=== PATIENT | female | born 1985 | race Hispanic/Latino ===

== ENCOUNTER 2017-05-28 18:55 | Emergency (ER) | payer BC ==
[2017-05-28 19:11] VITALS: O2SAT 99; BMI 25.0
--- NOTE | 2017-05-28 19:19 | ED PDOC ---
Physical Exam Vital Signs Reviewed: Yes Vital Signs Temp Pulse Resp BP Pulse Ox 05/28/17 19:06 98.6 F 72 16 117/76 99 Disposition/Present on Arrival - Present on Arrival History of DVT/PE: No History of Uncontrolled Diabetes: No Urinary Catheter: No History of Decub. Ulcer: No History Surgical Site Infection Following: None - Disposition Forms: [employer] (Welsh)
--- NOTE | 2017-05-28 20:05 | ED PDOC ---
Arrival/HPI - General Chief Complaint: Upper Extremity Problem/Injury Time Seen by Provider: 05/28/17 19:02 Historian: Patient - History of Present Illness Narrative History of Present Illness (Text): 05/28/17 19:58 Pt is 44 yo f who c/o left shoulder and chest pain x1 day after doing a strenuous workout on the elliptical machine at the gym. She states that pain and tightness commenced 8 hrs post workout. Describes pain worsens on inspiration and left side-lying; a warm shower provides some relief. She reports no intake of analgesics and is concerned that the pain is heart-related , although no cardiac history.She denies SOB, N/V/D, radiating pain, upper limb paresthesia, fever or chills. Time/Duration: Prior to Arrival Symptom Onset: Sudden Symptom Course: Unchanged Quality: Aching, Tightness Severity Level: Mild Activities at Onset: Rest, Light Context: Sitting, Standing Past Medical History - Provider Review Nursing Documentation Reviewed: Yes - Travel History Have you recently traveled outside [place] w/in the past 3 mons?: No - Infectious Disease Hx of Infectious Diseases: None - Reproductive Menopause: No Currently : No - Past Medical History Past Medical History: No Previous - Cardiac Hx Cardiac Disorders: No Hx Angina: No Hx Atrial Fibrillation: No - Pulmonary Hx Respiratory Disorders: No Hx Asthma: No - Neurological Hx Neurological Disorder: No - HEENT Hx HEENT Disorder: No - Renal Hx Renal Disorder: No - Endocrine/Metabolic Hx Endocrine Disorders: No - Hematological/Oncological Hx Blood Disorders: No - Integumentary Hx Dermatological Disorder: No - Musculoskeletal/Rheumatological Hx Musculoskeletal Disorders: No - Gastrointestinal Hx Gastrointestinal Disorders: No - Genitourinary/Gynecological Hx Genitourinary Disorders: No - Psychiatric Hx Psychophysiologic Disorder: No Hx Substance Use: No - Past Surgical History Past Surgical History: No Previous - Anesthesia Hx Anesthesia: No - Suicidal Assessment Feels Threatened In Home Enviroment: No Family/Social History - Physician Review Nursing Documentation Reviewed: Yes Family/Social History: No Known Family HX Smoking Status: Never Smoked Hx Alcohol Use: No Hx Substance Use: No Allergies/Home Meds Allergies/Adverse Reactions: Allergies No Known Allergies Allergy (Verified 05/28/17 19:11) Review of Systems - Physician Review All systems were reviewed & negative as marked: Yes - Review of Systems Constitutional: Normal. absent: Fatigue, Weight Change, Fevers, Night Sweats, Other Eyes: Normal. absent: Vision Changes, Photophobia, Eye Pain, Other ENT: Normal. absent: Hearing Changes, Tinnitus, TMJ Pain, Voice Changes, Sore Throat, Rhinorrhea, Epistaxis, Sinus Congestion, Other Respiratory: Normal Cardiovascular: Normal Musculoskeletal: Normal, Other (tenderness over the left pectoralis ) Neurological: Normal. absent: Headache, Dizziness, Focal Weakness, Gait Changes , Speech Changes, SC, Facial Droop, DE, Disequilibrium, SE, Seizure, Other Physical Exam Vital Signs Reviewed: Yes Vital Signs Temp Pulse Resp BP Pulse Ox 05/28/17 21:28 98.4 F 74 18 113/68 99 05/28/17 19:06 98.6 F 72 16 117/76 99 Temperature: Afebrile Blood Pressure: Normal Pulse: Regular Respiratory Rate: Normal Appearance: Positive for: Well-Appearing Pain Distress: Mild Mental Status: Positive for: Alert and Oriented X 3 - Systems Exam Head: Present: Atraumatic, Normocephalic. No: Tenderness, Contusion, Swelling, Ecchymosis, Abrasion, Laceration, Other Pupils: Present: PERRL. No: Sluggish, Non-Reactive, Pinpoint, Other Respiratory/Chest: Present: Clear to Auscultation, Good Air Exchange. No: Respiratory Distress, Accessory Muscle Use Cardiovascular: Present: Regular Rate and Rhythm, Normal S1, S2. No: Murmurs Abdomen: Present: Normal Bowel Sounds. No: Tenderness, Distention, Peritoneal Signs Back: Present: Normal Inspection Upper Extremity: Present: Normal Inspection, Normal ROM, Neurovascularly Intact. No: Cyanosis, Edema Neurological: Present: GCS=15, CN II-XII Intact, Speech Normal Skin: Present: Warm, Dry, Normal Color. No: Rashes Medical Decision Making ED Course and Treatment: 05/28/17 20:20 Pt is 44 yo f who c/o left shoulder and chest pain x1 day after doing a strenuous workout on the elliptical machine at the gym. Pt expressed concern for heart-related event. PE reveals full ROM in active and passive movement to bilateral shoulder. Left pectoralis and upper trapezius point tenderness but negative with left shoulder. Pt likely has muscle strain s/p intense cardio workout yesterday as there no signs of pleuritic or cardiac involvement. Advised pt to rest (avoid elliptical workout for a few days) apply warm compress to tight muscles, take NSAID for pain and inflammation and muscle relaxant to relieve muscle spasm - PA / MANNEQUIN DECORATOR / Resident Statement MD/DO has examined the patient and agrees with the treatment plan. (Discussed evaluation and management) Disposition/Present on Arrival - Present on Arrival Any Indicators Present on Arrival: No History of DVT/PE: No History of Uncontrolled Diabetes: No Urinary Catheter: No History of Decub. Ulcer: No History Surgical Site Infection Following: None - Disposition Have Diagnosis and Disposition been Completed?: Yes Diagnosis: Muscle strain Disposition: HOME/ ROUTINE Disposition Time: 20:35 Patient Plan: Discharge Condition: IMPROVED Discharge Instructions (ExitCare): Ibuprofen (By mouth), Methocarbamol (By mouth), Muscle Strain (ED) Additional Instructions: Dear Patient, After careful assessment and evaluation of your condition, you have been diagnosed with the left upper trapezius and chest muscle strain. I would recommend that you apply either warm compresses or ice to the strained muscles for pain relief. You can also take Robaxin, a muscle relaxant, to reduce your muscle spasm and take 1 tablet of ibuprofen by mouth, every 6 hrs as needed to reduce pain and inflammation. Please make sure that you eat a meal before taking the ibuprofen. Follow up with you primary care doctor in about 5 days. Return to the emergency department if you experience an increase in pain or other symptoms. All the best in your recovery. Prescriptions: Ibuprofen [Motrin Tab] 600 mg PO Q6 PRN 5 Days #20 tab PRN Reason: pain/fever Methocarbamol [Robaxin] 500 mg PO Q8 PRN #20 tab PRN Reason: Muscle Spasm Referrals: Fara Moore MD [Primary Care Provider] - Follow up with primary Forms: [employer] ([employer])
[2017-05-28 21:28] VITALS: BP 113/68; PULSE 74; RESP 18; TEMP 98.4
== END 2017-05-28 21:29 | disposition home or self-care (01) ==
LOC: ED 18:55
DX: S29.011A Strain of muscle and tendon of front wall of thorax, initial encounter (principal); X50.0XXA Overexertion from strenuous movement or load, initial encounter; Y93.A1 Activity, exercise machines primarily for cardiorespiratory conditioning; Y92.39 Other specified sports and athletic area as the place of occurrence of the external cause